=== PATIENT | female | born 1990 | race Caucasian/White ===

== ENCOUNTER 2020-02-12 22:03 | Emergency (ER) | payer OTHER ==
[~2020-02-12] VITALS: Ht 152.4 cm; Wt 56.1 kg
[2020-02-12 22:03] VITALS: BP 131/76
--- NOTE | 2020-02-12 22:13 | PHYS DOC ---
Past History Past Medical History: Fibromyalgia, Ovarian Cyst, Other Past Medical History Gastroparesis Smoking: Cigarettes Drug Use: Marijuana, Methamphetamine General Adult EDM: Chief Complaint: ABDOMINAL PAIN HPI: HPI: "I got bad gastroparesis.. and I am hurting tonight.. and I ve got vaginal bleeding.. I am on a new control... " Patient is a 29 year old female who presents with above hx and complaints dysfunctional uterine bleeding and a history of gastroparesis. Patient denies any intake bad food. No recent travel. No specific ill contacts. Patient's had 3 pregnancies 1 vaginal then twins by and then 1 vaginal. Patient history of gastroparesis etiology is unclear. Patient does use marijuana every day. Patient denies other drug use however drug screen currently shows positive for methamphetamine. Patient requesting a pelvic exam concerning for possible pelvic infection. Patient states she has never had an STD. Has had 2 lifetime sexual partners. Review of Systems: Review of Systems: Constitutional: Denies fever or chills Eyes: Denies change in visual acuity HENT: Denies nasal congestion or sore throat Respiratory: Denies cough or shortness of breath Cardiovascular: Denies chest pain or edema GI: Complains of generalized abdominal pain, nausea,. Vomiting complaints. De nies, bloody stools or diarrhea : Denies dysuria Musculoskeletal: Denies back pain or joint pain Integument: Denies rash Neurologic: Denies headache, focal weakness or sensory changes Endocrine: Denies polyuria or polydipsia Lymphatic: Denies swollen glands Psychiatric: Denies depression or anxiety Heart Score: Risk Factors: Risk Factors: DM, Current or recent (<one month) smoker, HTN, HLP, family history of CAD, obesity. Risk Scores: Score 0 - 3: 2.5% MACE over next 6 weeks - Discharge Home Score 4 - 6: 20.3% MACE over next 6 weeks - Admit for Clinical Observation Score 7 - 10: 72.7% MACE over next 6 weeks - Early Invasive Strategies Family History: Family History: Noncontributory to presentation Current Medications: Current Meds: See nursing for home meds Physical Exam: PE: Constitutional: Moderate acute distress, non-toxic appearance. [] HENT: Normocephalic, atraumatic, bilateral external ears normal, oropharynx dry no oral exudates, nose normal. [] Eyes: PERRLA, EOMI, conjunctiva normal, no discharge. [] Neck: Normal range of motion, no tenderness, supple, no stridor. [] Cardiovascular:Heart rate regular rhythm, no murmur [] Lungs & Thorax: Bilateral breath sounds equal apex with scattered wheezes auscultation [] Abdomen: Bowel sounds normal, soft, generalized tenderness, no masses, no pulsatile masses. Old surgery scars. Pelvic exam bleeding from os, no focal areas or rebound. Skin: Warm, dry, no erythema, no rash. [] Back: No tenderness, no CVA tenderness. [] Extremities: No tenderness, no cyanosis, no clubbing, ROM intact, no edema. [No psoas Neurologic: Alert and oriented X 3, normal motor function, normal sensory function, no focal deficits noted. [] Psychologic: Affect anxious, judgement normal, mood normal. [] EKG: EKG: [] Radiology/Procedures: Radiology/Procedures: Declined completion of x-rays [] Course & Med Decision Making: Course & Med Decision Making Pertinent Labs and Imaging studies reviewed. (See chart for details) Patient shortly after pelvic exam, becoming impatient. Demanding discharge. Does not wish to wait for labs or completion of x-rays. Patient encouraged to stay on a clear fluid diet. Push fruit juices. Return if any concerns or wishes to complete her ED work up. . Patient encouraged to avoid illicit drugs. Patient encouraged to reduce her marijuana intake since this can cause gastroparesis. Impression: 1. Abdomen Pain 2. Dysfunctional Uterine Bleeding 3. Tobacco, marijuana and methamphetamine use 4. Hypokalemia 3.0 [] Dragon Disclaimer: Dragbuffy Disclaimer: This electronic medical record was generated, in whole or in part, using a voice recognition dictation system. Departure Departure: Disposition: HOME/RESIDENCE PRIOR TO ADM Condition: STABLE Referrals: BO HERNANDEZ MD (PCP) Russ Disclaimer This chart was dictated in whole or in part using Voice Recognition software in a busy, high-work load, and often noisy Emergency Department environment. It may contain unintended and wholly unrecognized errors or omissions. ASHLEY DUFF MD Feb 12, 2020 22:13
[2020-02-12] MEDS ORDERED: IV RINGERS SOLUTION,LACTATED 1,000 ML IV SCH (22:30)
[2020-02-12] MEDS ORDERED: ONDANSETRON PF 4 MG/2 ML VIAL. IVP ONE (22:30)
[2020-02-12] MEDS ORDERED: MAGNESIUM HYDROXIDE 2,400 MG/30 ML ORAL.SUSP. PO ONE (22:30)
[2020-02-12] MEDS ORDERED: FAMOTIDINE 20 MG/2 ML VIAL IVP ONE (22:30)
[2020-02-13 00:14] LABS: BASO % 1 % (0-3); EOS % 1 % (0-3); HEMATOCRIT 41.6 % (36.0-47.0); LYMPH # 2.2 x10^3/uL (1.0-4.8); LYMPH % 37 % (24-48); MEAN CORPUSCULAR HEMOGLOBIN 32 pg (25-35); MEAN CORPUSCULAR HGB CONC 34 g/dL (31-37); MEAN CORPUSCULAR VOLUME 96 fL (79-100); MONO # 0.4 x10^3/uL (0.0-1.1); MONO % 7 % (0-9); NEUT # 3.1 x10^3uL (1.8-7.7); NEUT % 54 % (31-73); PLATELET COUNT 298 x10^3/uL (140-400); RED BLOOD COUNT 4.35 x10^6/uL (3.50-5.40); RED CELL DISTRIBUTION WIDTH 13.6 % (11.5-14.5); WHITE BLOOD COUNT 5.8 x10^3/uL (4.0-11.0)
[2020-02-13 00:31] LABS: CLARITY,URINE CLEAR; COLOR,URINE YELLOW; GLUCOSE,URINE NEG (NEG)
[2020-02-13 00:32] LABS: BACTERIA,URINE 0 /HPF (0-FEW); BILIRUBIN,URINE NEG (NEG); NITRITE,URINE NEG (NEG); RBC,URINE OCC /HPF (0-2); WBC,URINE OCC /HPF (0-4)
[2020-02-13 00:33] LABS: SQUAMOUS EPITHELIAL CELL,UR MOD /LPF
[2020-02-13 00:36] LABS: BARBITURATES NEG (NEG); BENZODIAZEPINES NEG (NEG); CANNABINOIDS POS (NEG); COCAINE NEG (NEG); METHADONE NEG (NEG); OPIATES NEG (NEG); PHENCYCLIDINE NEG (NEG)
[2020-02-13 00:37] LABS: CALCIUM 9.1 mg/dL (8.5-10.1); GFR 66.5
[2020-02-13 00:39] LABS: AMPHETAMINE/METHAMPHETAMINE POS (NEG)
[2020-02-13 00:46] LABS: ALBUMIN 3.8 g/dL (3.4-5.0); DIRECT BILIRUBIN 0.1 mg/dL (0.0-0.2); TOTAL BILIRUBIN 0.4 mg/dL (0.2-1.0); TOTAL PROTEIN 7.7 g/dL (6.4-8.2)
[2020-02-17 17:07] LABS: CHLAMYDIA PROBE Negative (Negative)
== END 2020-02-13 00:15 | disposition home or self-care (01) ==
LOC: ER 22:03
DX: N93.8 Other specified abnormal uterine and vaginal bleeding (principal); R10.84 Generalized abdominal pain; E87.6 Hypokalemia; F17.210 Nicotine dependence, cigarettes, uncomplicated; F12.10 Cannabis abuse, uncomplicated; F15.10 Other stimulant abuse, uncomplicated; M79.7 Fibromyalgia
CPT/HCPCS: 36415; 80048; 80076; 80307; 81001; 81025; 82150; 82550; 83690; 84484; 85025; 86592; 86703; 87491; 87591; 96361; 96374; 96375; 99284; J2405; J3490; J7120; Q0111

== ENCOUNTER 2020-06-24 16:56 | Emergency (ER) | payer OTHER ==
[~2020-06-24] VITALS: Ht 152.4 cm; Wt 56.8 kg
--- NOTE | 2020-06-24 20:18 | PHYS DOC ---
Past History Past Medical History: Other Additional Past Medical Histor: gastroparesis (MARY PATEL APRN) Past Surgical History: (MARY PATEL APRN) Smoking: Cigarettes Additional Smoking Information: 05/15 PPD Alcohol Use: None Drug Use: Marijuana, Methamphetamine (MARY PATEL APRN) General Adult EDM: Chief Complaint: NAUSEA/VOMITING/DIARRHEA HPI: HPI: Patient is a 29-year-old female who presents with night sweats. Patient states that her PCP took her off of gabapentin yesterday and she has been having withdrawal symptoms symptoms since. "I keep getting hot and cold". Patient denies nausea, vomiting, diarrhea, fever. Patient denies any acute pain. Patient has history of chronic gastroparesis. (MARY PATEL APRN) Review of Systems: Review of Systems: Constitutional: Denies fever or chills Eyes: Denies change in visual acuity HENT: Denies nasal congestion or sore throat Respiratory: Denies cough or shortness of breath Cardiovascular: Denies chest pain or edema GI: Denies abdominal pain, nausea, vomiting, bloody stools or diarrhea : Denies dysuria Musculoskeletal: Denies back pain or joint pain Integument: Denies rash Neurologic: Denies headache, focal weakness or sensory changes Endocrine: Denies polyuria or polydipsia Lymphatic: Denies swollen glands Psychiatric: Denies depression or anxiety (MARY PATEL APRN) Allergies: Allergies: Allergies Coded Allergies Type Severity Reaction Last Updated Verified Penicillins Allergy Unknown 02/12/20 Yes (MARY PATEL APRN) Physical Exam: PE: Constitutional: Well developed, well nourished, no acute distress, non-toxic appearance. [] HENT: Normocephalic, atraumatic, bilateral external ears normal, oropharynx moist, no oral exudates, nose normal. [] Eyes: PERRLA, EOMI, conjunctiva normal, no discharge. [] Neck: Normal range of motion, no tenderness, supple, no stridor. [] Cardiovascular:Heart rate regular rhythm, no murmur [] Lungs & Thorax: Bilateral breath sounds clear to auscultation [] Abdomen: Bowel sounds normal, soft, no tenderness, no masses, no pulsatile masses. [] Skin: Warm, dry, no erythema, no rash. [] Back: No tenderness, no CVA tenderness. [] Extremities: No tenderness, no cyanosis, no clubbing, ROM intact, no edema. [] Neurologic: Alert and oriented X 3, normal motor function, normal sensory function, no focal deficits noted. [] Psychologic: Affect normal, judgement normal, mood normal. [] (MARY PATEL APRN) Current Patient Data: Vital Signs: Vital Signs Date Time Temp Pulse Resp B/P (MAP) Pulse Ox O2 Delivery O2 Flow Rate FiO2 06/24/20 19:17 68 18 100/59 (73) 96 Room Air 06/24/20 18:09 97.8 (MARY PATEL APRN) EKG: EKG: [] (MARY PATEL APRN) Radiology/Procedures: Radiology/Procedures: [] (MARY PATEL APRN) Heart Score: Risk Factors: Risk Factors: DM, Current or recent (<one month) smoker, HTN, HLP, family history of CAD, obesity. Risk Scores: Score 0 - 3: 2.5% MACE over next 6 weeks - Discharge Home Score 4 - 6: 20.3% MACE over next 6 weeks - Admit for Clinical Observation Score 7 - 10: 72.7% MACE over next 6 weeks - Early Invasive Strategies (MARY PATEL APRN) Course & Med Decision Making: Course & Med Decision Making Pertinent Labs and Imaging studies reviewed. (See chart for details) [] Patient is a 29-year-old female who presents with night sweats. Patient states that her PCP took her off of gabapentin yesterday and she has been having withdrawal symptoms symptoms since. "I keep getting hot and cold". Patient denies nausea, vomiting, diarrhea. Patient denies any acute pain. Patient has history of chronic gastroparesis. Discussed with patient possible withdrawal symptoms from gabapentin. Patient refused low-dose gabapentin in the ER. Explained to patient that symptoms may last up to 3 days. Patient will need to follow-up with her PCP. If symptoms worsen or she has concerns she is to return to the emergency room. Patient is okay with this plan. Patient is hemodynamically stable. (MARY PATEL APRN) Course & Med Decision Making Did not see or evaluate patient. Agree with AERODYNAMICS TEACHER's work-up and disposition per note. (CHANDRIKA GANDHI MD) Russ Disclaimer: Dragbuffy Disclaimer: This electronic medical record was generated, in whole or in part, using a voice recognition dictation system. (MARY PATEL APRN) Departure Departure: Impression: Primary Impression: Withdrawal complaint Disposition: 09 ADMITTED INPT THIS HOSP Condition: GOOD Referrals: BO HERNANDEZ MD (PCP) Additional Instructions: EMERGENCY DEPARTMENT GENERAL DISCHARGE INSTRUCTIONS Thank you for coming to [facility] (ED) today and trusting us with you care. We trust that you had a positivie experience in our Emergency Department. If you wish to speak to the department management, you may call the director at [phone]. YOUR FOLLOW UP INSTRUCTIONS ARE FOLLOWS: 1. Do you have a private Doctor? If you do not have a private doctor, please ask for a resource list of physicians or clinics that may be able to assist you with follow up care. 2. The Emergency Physician has interpreted your x-rays. The X-Ray specialist will also review them. If there is a change in the findings, you will be notified in 48 hours when at all possible. 3. A lab test or culture has been done, your results will be reviewed and you will be notified if you need a change in treatment. ADDITIONAL INSTRUCTIONS AND INFORMATION: 1. Your care today has been supervised by a physician who is specially trained in emergency care. Many problems require more than one evaluation for a complete diagnosis and treatment. We recommend that you schedule your follow up appointment as recommended to ensure complete treatment of you illness or injury. If you are unable to obtain follow up care and continue to have a problem, or if your condition worsens, we recommend that you return to the ED. 2. We are not able to safely determine your condition over the phone nor are we able to give sound medical advice over the phone. For these safety reasons, if you call for medical advice we will ask you to come to the ED for further evaluation. 3. If you have any questions regarding these discharge instructions please call the ED at [phone]. SAFETY INFORMATION: In the interest of safety, wellness, and injury prevention; we encourage you to wear your sealbelt, if you smoke; quite smoking, and we encourage family to use a protective helmet for bicycling and other sporting events that present an increased risk for head injury. IF YOUR SYMPTOMS WORSEN OR NEW SYMPTOMS DEVELOP, OR YOU HAVE CONCERNS ABOUT YOUR CONDITION; OR IF YOUR CONDITION WORSENS WHILE YOU ARE WAITING FOR YOUR FOLLOW UP APPOINTMENT; EITHER CONTACT YOUR PRIMARY CARE DOCTOR, THE PHYSICIAN WHOSE NAME AND NUMBER YOU WERE GIVEN, OR RETURN TO THE ED IMMEDIATELY. MARY PATEL APRN Jun 24, 2020 20:18 CHANDRIKA GANDHI MD Jun 25, 2020 02:17
[2020-06-24 20:31] VITALS: BP 121/77
== END 2020-06-24 20:30 | disposition admitted as inpatient to this hospital (09) ==
LOC: ER 16:56
DX: R61 Generalized hyperhidrosis (principal); F19.239 Other psychoactive substance dependence with withdrawal, unspecified; F17.210 Nicotine dependence, cigarettes, uncomplicated; F12.10 Cannabis abuse, uncomplicated; F15.10 Other stimulant abuse, uncomplicated; Z88.0 Allergy status to penicillin
CPT/HCPCS: 99281; 99283; 99284